=== PATIENT | male | born 1970 ===

== ENCOUNTER 2024-02-19 19:19 | Emergency (ER) | payer OTHER, SELFPAY ==
[2024-02-19 19:27] VITALS: BP 183/123
[2024-02-19 19:51] VITALS: BMI 41.8
--- NOTE | 2024-02-19 20:20 | ED.GENMED ---
History of Present Illness
General
Chief Complaint: Musculo-Skeletal Complaint
Source: patient
Exam Limitations: none
Time Seen by Provider: 02/19/24 20:05
Nursing documentation reviewed up to this point in time: agreed with
History of Present Illness
History of Present Illness:
Patient is a 53-year-old male who presents to the ER complaining right shoulder pain. Patient reports he was bench pressing 6 days ago and since has had pain in his right shoulder. He reports this is the first time he did these exercises in a
while. He denies any trauma. He has been alternate Tylenol Motrin but does have pain. He denies any numbness tingling weakness.
Past History
Past History
ED Past Medical History: GERD, HTN and Other (Hypertension, GERD, inguinal hernia repair)
Social History
Tobacco: Non-smoker
Alcohol: None
Drug: None
Personal:
Living: with family
Employment: Employed
Family History
Family History: Other (His dad had a stroke at age 58)
Review of Systems
Review of Systems
Allergies reviewed?: Yes
All Other Systems: ROS reviewed and negative except as documented in HPI and ROS
Constitutional: Reports no symptoms
Musculoskeletal: Reports other (right shoulder pain )
Skin: Reports no symptoms
Psychiatric: Reports no symptoms
Phy Exam
General Physical Exam
General Presentation: no apparent distress
General age: appears stated age
General Skin: warm and dry
General Habitus: normal
General Mental: alert
General Hydration: appears well hydrated
Neurological Exam
Neurological Exam: alert and oriented x3
Musculoskeletal Exam
Musculoskeletal Exam: other (Normal inspection to right upper extremity strong distal pulses normal executive producer strength normal sensation normal cap refill tenderness the anterior shoulder deltoid region pain with abduction no clavicle tenderness, no
deformity)
Skin Exam
Skin Exam: normal color and warm/dry
Psychiatric Exam
Psychiatric Exam: normal mood/affect
Course
Orders/Labs/Results
Orders:
Orders
02/19/24 19:29
Shoulder, Right 2 Views [CR Shoulder - Right Min 2 View] Urgent
Comment:
Reason For Exam: pain
02/19/24 20:20
Ketorolac [Toradol] 30 mg IM NOW STA
02/19/24 20:23
Vital Signs- Treatment ONCE
Frequency: Once
Vital Signs
Initial and Last Documented VS:
Initial Vital Signs
Temp Pulse Resp BP Pulse Ox
99.4 F 81 18 183/123 98
02/19/24 19:27 02/19/24 19:27 02/19/24 19:27 02/19/24 19:27 02/19/24 19:27
Last Documented Vital Signs
Temp Pulse Resp BP Pulse Ox
99.4 F 81 18 183/123 98
02/19/24 19:27 02/19/24 19:27 02/19/24 19:27 02/19/24 19:27 02/19/24 19:27
MDM/Problems Addressed
Differential Diagnosis Includes:
Not limited to sprain strain rotator cuff injury less likely fracture, tendinitis
MDM/Problems Addressed:
Symptoms consistent with overuse sprain strain. Will DC with ice, ibuprofen and close outpatient follow-up with orthopedics. Patient has his own orthopedic doctor he will follow-up.
blood pressure elevated in the ER however patient reports he only took 5 mg as opposed to his 10 mg of medication for blood pressure..asymptomatic. d/c pt to take his med when he goes home.
*Radiology
Radiology exam reviewed: radiology read reviewed
*Critical Care Note
Total Time (30-74mins, 75-104mins- exclusive of procedures): Not Applicable
ED Attending Note
-
Portions of this chart may have been created with voice recognition software.� Occasional wrong word or��sound alike� substitutions may have occurred due to the inherent limitations of voice recognition software.
Discharge Plan
Departure
Patient Disposition: Home (Routine Discharge)
Date of Disposition: 02/19/24
Time of Disposition: 20:23
Patient with high blood pressure during this ER visit?: Yes
Discharge Problem:
Right shoulder strain
Instructions: Shoulder Pain ED
Prescriptions:
No Action
aspirin 325 MG tablet
325 mg PO DAILY 0RF
metoprolol tartrate 100 MG tablet
100 mg PO DAILY Qty: 60 5RF
chlorthalidone 25 MG tablet
25 mg PO DAILY Qty: 30 5RF
pantoprazole 40 MG tablet,delayed release (DR/EC)
40 mg PO DAILY Qty: 30 5RF
metoprolol tartrate 50 MG tablet
50 mg PO QPM 0RF
colchicine 0.6 MG tablet
0.6 mg PO DAILY Qty: 90 5RF
amlodipine 5 MG tablet
5 mg PO BID Qty: 60 5RF
albuterol sulfate 90 mcg/actuation HFA aerosol inhaler
2 puff inhalation QID PRN (Reason: shortness of breath or wheezing) Qty: 6.7 0RF
prednisone 10 mg Tablet
See Rx Instructions .ROUTE .COMPLEX Qty: 45 0RF
Rx Instructions:
Take By Mouth:
50 mg daily x3 days, 40 mg daily x3 days,
30 mg daily x3 days, 20 mg daily x3 days,
10 mg daily x3 days
Activity Restrictions/Additional Instructions:
Rest shoulder as much as possible. You may continue to ice intermittently throughout the day. Ibuprofen every 8 hours with food. Follow-up with your orthopedic doctor in the next several days.
return if any worsening of symptoms.
Interventions
Interventions:
*Risk Screen - Suicide Last Done: 02/19/24 19:54
*Neglect/Abuse Screening Last Done: 02/19/24 19:54
ED- Fall Risk Assessment Last Done: 02/19/24 19:51
*ED COVID-19 Vaccine History Last Done: 02/19/24 19:54
ED-Musculoskeletal Assessment Last Done: 02/19/24 19:51
Discharge Date and Time
Print Language: CZECH
[2024-02-19] MEDS: TORADOL 30 MG IM (20:24)
[2024-02-19 20:33] VITALS: BP 164/102
== END 2024-02-19 20:42 | disposition home or self-care (01) ==
LOC: EMR 19:19
PROVIDERS: EMERGENCY PHYSICIAN Emergency Medicine; FAMILY PHYSICIAN Family Medicine
DX: S46.911A Strain of unspecified muscle, fascia and tendon at shoulder and upper arm level, right arm, initial encounter (principal); X50.1XXA Overexertion from prolonged static or awkward postures, initial encounter; I10 Essential (primary) hypertension; K21.9 Gastro-esophageal reflux disease without esophagitis
CPT/HCPCS: 96372; 99284; 73030